=== PATIENT | male | born 1950 | race Caucasian/White ===

== ENCOUNTER 2017-08-11 12:17 | Emergency (ER) | payer OTHER, MEDICARE ==
[~2017-08-11] VITALS: Ht 193 cm; Wt 86.0 kg
[2017-08-11] MEDS ORDERED: PERCOCET 5/325M1 TAB PO (15:15)
[2017-08-11 15:35] VITALS: BP 132/83
== END 2017-08-11 15:35 | disposition home or self-care (01) | DRG 605 ==
LOC: ED 12:17
PROC: 0HQ1XZZ Repair Face Skin, External Approach (ICD-10-PCS; principal; 2017-08-11)
DX: S00.83XA Contusion of other part of head, initial encounter (principal); M54.6 Pain in thoracic spine; S01.112A Laceration without foreign body of left eyelid and periocular area, initial encounter; S20.229A Contusion of unspecified back wall of thorax, initial encounter; S50.312A Abrasion of left elbow, initial encounter; X58.XXXA Exposure to other specified factors, initial encounter; W22.8XXA Striking against or struck by other objects, initial encounter; Y93.H9 Activity, other involving exterior property and land maintenance, building and construction; Y92.89 Other specified places as the place of occurrence of the external cause